=== PATIENT | male | born 1970 | race Caucasian/White ===

== ENCOUNTER → 2017-11-16 | Outpatient (CLI) | payer BC, OTHER ==
[~2017-11-16] MED LIST: IOPAMIDOL 76% 75 ML INFUS BTL 75 ML ONE
--- NOTE | 2017-11-16 09:30 | RADIOLOGY IMAGING REPORT ---
FACILITY: [facility] PATIENT NAME: Parminder Viera : 1970 MR: [id number] V: [id number] EXAM DATE: ORDERING PHYSICIAN: ARTURO WAKEFIELD TECHNOLOGIST: [facility] Patient: Parminder Viera : 1970 Visit/Account:[id number] Date of Sevice: 11/16/2017 ABDOMEN/PELVIS W/WO CONTRAST HISTORY: Right lower quadrant pain TECHNIQUE: Axial images acquired through the abdomen/pelvis both with and without IV contrast.. Adalid nal and sagittal reformatting also performed. Dose Lowering Technique One of the following dose optimization techniques was utilized in the performance of this exam: Autom ated exposure control; adjustment of the mA and/or kV according to the patient's size; or use of an i terative reconstruction technique. Specific details can be referenced in the facility's radiology C T exam operational policy. CONTRAST: 75 mL Isovue-[id number] COMPARISON: None. FINDINGS: Visualized lung bases: Negative. Hepatobiliary: Negative. Spleen: Negative. Adrenals: Negative. Pancreas: Negative. Kidneys ureters and bladder: Negative. Genitalia: Negative. GI: There is diverticulosis seen throughout the left-sided colon although no CT evidence of acute di verticulitis. There is fatty replacement of the wall of the terminal ileum with narrowing of the lum en. No surrounding inflammatory changes seen. There is no evidence of bowel obstruction. The appen reinaldo is not visualized Vessels/spaces/nodes: Negative. Bones/soft tissues: There is infiltrative enhancement in the left latissimus dorsi muscle just above the level of the left iliac crest measuring 4 x 3.6 x 8.4 cm. There are mild spondylotic changes L5-S1. There is a 9 mm sclerotic lesion in the left femoral neck Additional findings: None pertinent. IMPRESSION: There is fatty replacement of the wall of the terminal ileum with narrowing of the lumen. These find ings have been described with Crohn's disease. Clinical correlation needed Diverticulosis left-sided colon although no CT evidence of acute diverticulitis There is an infiltrative enhancing masslike area in the left latissimus dorsi muscle just above the l evel of the left iliac crest measuring 4 x 3.6 x 8.4 cm. MR of this area with and without contrast i s recommended for further evaluation 9 mm sclerotic lesion in the left femoral neck could represent a bone island although follow-up recom mended Report Dictated By: Agnes Taylor MD at 11/16/2017 9:07 AM Report E-Signed By: Agnes Taylor MD at 11/16/2017 9:25 AM KELLYN:[email or web address]
== END ==
LOC: CT 00:55
PROVIDERS: ATTEND Surgery
DX: R19.03 Right lower quadrant abdominal swelling, mass and lump (principal); M47.897 Other spondylosis, lumbosacral region; K57.30 Diverticulosis of large intestine without perforation or abscess without bleeding
CPT/HCPCS: 36415; 74178; 82565; Q9967

== ENCOUNTER 2017-11-30 00:25 | Day surgery (SDC) | payer BC, OTHER ==
[~2017-11-30] VITALS: Ht 180.3 cm; Wt 84.4 kg
[~2017-11-30 00:25] MED LIST changes: +CHOL10005 PO; +CINN500C12 PO; -IOPAMIDOL 76% 75 ML INFUS BTL 75 ML ONE; +LEVO5TAB28 PO; +LOSA50TA72 PO; +OMEP-137 PO; +SUVO10TA PO; +ZOLP-1 PO
[2017-11-30] MEDS ORDERED: PROPOFOL EMUL(*) 10MG/ML 20 ML 20 ML ONE (07:31)
--- NOTE | 2017-11-30 07:33 | Post Operative Progress Note ---
Post Operative Progress Note Date: Nov 30, 2017 Time: 11:32 Surgeon: sharla Anesthesia: dr brennan Pre-Op Diagnosis: abnormal ct of terminal ileum Post-Op Diagnosis: 3 mm polyp in cecum and sigmoid diverticulosis Procedure(s): colonoscopy and polypectomy and biopsy of terminal ileum ARTURO WAKEFIELD MD Nov 30, 2017 07:33
--- NOTE | 2017-11-30 07:34 | Short(Outpt) Discharge Summary ---
Discharge Summary Reason for Hosp/Final Diag: (1) Abnormal CT scan, small bowel Hospital Course & Plan: 3 mm polyp in cecum sigmoid diverticulosis and biopsy of terminal ileum Departure Discharge to: Home Discharge Instructions Home Meds Reported Medications Suvorexant (Belsomra) 10 Mg Tablet, 30 MG PO QHS 11/29/17 Zolpidem Tartrate (AMBIEN) 5 Mg Tablet, 1 TAB PO QHS, TAB 11/29/17 Losartan Potassium (LOSARTAN POTASSIUM) 50 Mg Tablet, 50 MG PO QDAY 11/29/17 Cholecalciferol (Vitamin D3) (VITAMIN D3) 1,000 Unit Tablet, 1000 UNIT PO QDAY, TAB 11/29/17 Cinnamon Bark (CINNAMON) 500 Mg Capsule, 1000 MG PO QDAY, CAPSULE 11/29/17 Levocetirizine (XYZAL) 5 Mg Tab, 5 MG PO DAILY, TAB 11/29/17 Omeprazole (OMEPRAZOLE) 20 Mg Tablet.dr, 20 MG PO QDAY, TAB 11/29/17 Diet: High Fiber Activity: As Tolerated ARTURO WAKEFIELD MD Nov 30, 2017 07:34
[2017-11-30] MEDS ORDERED: LIDOCAINE/SOD BICARB 8.4% SYR ID ONE (10:15)
[2017-11-30] MEDS ORDERED: NORMOSOL R SOLN(*) 1000 ML BAG 1,000 ML IV PRN (10:15)
[2017-11-30 10:37] VITALS: BP 148/102
[2017-11-30 11:30] VITALS: BP 125/64
[2017-11-30 11:48] VITALS: BP 140/100
[2017-11-30 11:50] VITALS: BP 118/80
--- NOTE | 2017-11-30 19:48 | OPERATIVE REPORT 1 ---
EVENT DATE: November 30, 2017 SURGEON: Moreno Ngo MD ANESTHESIOLOGIST: Ricardo Boswell MD ANESTHESIA: Sedation. PREOPERATIVE DIAGNOSIS Abnormal CT scan of the terminal ileum. POSTOPERATIVE DIAGNOSES 1. Sigmoid diverticula. 2. A 3 mm polyp in the cecum. PROCEDURE PERFORMED Colonoscopy with biopsy at terminal ileum and polypectomy. DESCRIPTION OF PROCEDURE Patient was placed in the left lateral decubitus position and given intravenous sedation. Rectal exam was unremarkable. Flexible colonoscope was inserted and advanced to the cecum. He had an excellent bowel prep. The ileocecal valve, base of the cecum, and appendiceal orifice were identified. He had a polyp in the base of the cecum, 3 mm. This was removed with the polypectomy snare cautery and retrieved. We then cannulated the terminal ileum. The terminal ileum appeared to be normal to visualization. I could not identify any narrowings. We biopsied the terminal ileum. We then slowly withdrew. Care was taken to look behind the haustral folds. No abnormalities were noted in the right colon, transverse, or descending colon. He had sigmoid diverticula. No evidence of diverticulitis. The rectum was normal. Scope was retroflexed. That appeared to be normal. Patient will require a repeat colonoscopy in five years if that polyp is adenomatous. [facility]
== END 2017-11-30 12:00 | disposition home or self-care (01) ==
LOC: OR 00:25
PROVIDERS: ATTEND Surgery
DX: K57.30 Diverticulosis of large intestine without perforation or abscess without bleeding (principal); D12.0 Benign neoplasm of cecum
CPT/HCPCS: 00811; 45385; 88305; J2704

== ENCOUNTER → 2018-01-22 | Outpatient (CLI) | payer BC, OTHER | LOC: LAB 09:11 | PROVIDERS: ATTEND Nurse Practitioner Family | DX: E29.1 Testicular hypofunction (principal); R79.89 Other specified abnormal findings of blood chemistry | CPT/HCPCS: 36415; 82670; 84270; 84403 ==

== ENCOUNTER → 2018-08-17 | Outpatient (CLI) | payer BC, OTHER ==
[~2018-08-17] MED LIST changes: -LOSA50TA72 PO; +LOSA50TA80 PO
[2018-08-17 10:45] LABS: PLATELET COUNT, AUTOMATED 228 K/uL (150-450)
[2018-08-17 11:37] LABS: LDL CHOLESTEROL 84 mg/dl
== END ==
LOC: LAB 10:13
PROVIDERS: ATTEND Nurse Practitioner Family
DX: R53.81 Other malaise (principal); E29.1 Testicular hypofunction; J32.0 Chronic maxillary sinusitis; G47.09 Other insomnia; E78.00 Pure hypercholesterolemia, unspecified; R06.83 Snoring; I10 Essential (primary) hypertension
CPT/HCPCS: 36415; 82040; 82247; 82310; 82374; 82435; 82465; 82565; 82670; 82947; 83718; 84075; 84132; 84155; 84270; 84295; 84403; 84450; 84460; 84478; 84520; 85025